=== PATIENT | male | born 1950 | race Caucasian/White ===

== ENCOUNTER → 2017-03-29 | Emergency (ER) | payer OTHER ==
[~2017-03-29] VITALS: Ht 172.7 cm; Wt 89.5 kg
[~2017-03-29] MED LIST: ADVAIR 500-501 EACH IH; ADVAIR 500/501 DISK IH; ALBUTEROL IH; Ambien PO; LIDODERM 5% P1 PATCH TD; LIPITOR10 MG PO; Singulair PO; ZOFRAN ODT4 MG PO
[2017-03-29 14:12] VITALS: BP 111/85
== END | disposition home or self-care (01) ==
LOC: EME 11:43
DX: R11.0 Nausea (principal); J45.909 Unspecified asthma, uncomplicated; V49.40XA Driver injured in collision with unspecified motor vehicles in traffic accident, initial encounter
CPT/HCPCS: 99281; 99283

== ENCOUNTER 2017-04-05 08:39 | Emergency (ER) | payer OTHER ==
[~2017-04-05] VITALS: Ht 172.7 cm; Wt 89.0 kg
[~2017-04-05 08:39] MED LIST changes: -LIDODERM 5% P1 PATCH TD
[2017-04-05] MEDS ORDERED: LIDODERM 5% P1 PATCH TD (10:56)
[2017-04-05 11:09] VITALS: BP 134/60
== END 2017-04-05 11:10 | disposition home or self-care (01) ==
LOC: EME 08:39
DX: S20.211A Contusion of right front wall of thorax, initial encounter (principal); V49.40XA Driver injured in collision with unspecified motor vehicles in traffic accident, initial encounter; Y92.410 Unspecified street and highway as the place of occurrence of the external cause; I45.10 Unspecified right bundle-branch block; J45.909 Unspecified asthma, uncomplicated
CPT/HCPCS: 71020; 99281; 99284; J1885

== ENCOUNTER 2017-11-25 08:03 | Day surgery (SDC) | payer OTHER ==
[~2017-11-25] VITALS: Ht 172.7 cm; Wt 98.9 kg
[~2017-11-25 08:03] MED LIST changes: +FISH OIL 1,0001 EAC4 PO; +LIDODERM 5% P1 PATCH TD; +SINGULAIR10 MG PO; +TOPROL XL25 MG PO
[2017-11-25 09:19] VITALS: BP 138/78
[2017-11-25 14:43] VITALS: BP 142/86
[2017-11-25 15:31] VITALS: BP 143/83
[2017-11-25 19:24] VITALS: BP 136/73
[2017-11-25 23:15] VITALS: BP 137/79
[2017-11-26 03:42] VITALS: BP 132/72
[2017-11-26 05:20] LABS: HEMATOCRIT 39.4 % (38.0-50.0); HEMOGLOBIN 13.4 G/DL (12.5-16.6); MCV 83.1 FL (86-99)
[2017-11-26 07:50] VITALS: BP 137/71
[2017-11-26] MEDS ORDERED: ASPIR-LOW81 MG PO (09:09)
[2017-11-26] MEDS ORDERED: OXYCODONE HCL5 MG PO (09:10)
== END 2017-11-26 11:37 | disposition home or self-care (01) ==
LOC: SDC 08:03 → 2SOUTH 12:39 → 3EAST 12:39 → ENRESERV 12:40 → 3EAST 14:13 → SDC 16:53 → 3EAST 11-26 11:37
PROVIDERS: Orthopaedic Surgery
DX: M19.012 Primary osteoarthritis, left shoulder (principal); M18.12 Unilateral primary osteoarthritis of first carpometacarpal joint, left hand; I10 Essential (primary) hypertension; E78.5 Hyperlipidemia, unspecified; J45.909 Unspecified asthma, uncomplicated; Z87.891 Personal history of nicotine dependence
CPT/HCPCS: 85014; 85018; 94640; 94640 76; 94799; C1776; G0378; J0690; J1170; J1200; J2250; J2405; J2795; J3010; J3301; J7030; J7050; S0020

== ENCOUNTER 2018-04-05 17:19 | Emergency (ER) | payer OTHER ==
[~2018-04-05] VITALS: Ht 172.7 cm; Wt 85.5 kg
[~2018-04-05 17:19] MED LIST changes: +ASPIR-LOW81 MG PO; +OXYCODONE HCL5 MG PO
[2018-04-05 18:15] LABS: HEMOGLOBIN 14.2 G/DL (12.5-16.6); MCHC 34.6 G/DL (30.0-36.0); MCV 80.9 FL (86-99); PLATELET COUNT 253 K/uL (156-360); RBC DIS.WIDTH-CV 13.2 % (11.8-14.6); RBC DIS.WIDTH-SD 38.4 % (39-53); RED BLOOD COUNT 5.07 M/uL (4.00-5.50); WHITE BLOOD COUNT 13.2 K/uL (4.1-10.2)
[2018-04-05 18:25] LABS: D-DIMER ELISA < 150.00 ng/mLDDU (<230)
[2018-04-05 18:25] LABS: CHLORIDE 104 mEq/L (99-109); POTASSIUM 4.1 mEq/L (3.7-5.4); SODIUM 140 mEq/L (136-147)
[2018-04-05 18:27] LABS: GLUCOSE 97 mg/dL (70-99)
[2018-04-05 18:31] LABS: CREATININE 0.9 mg/dL (0.6-1.3); GFR ESTIMATE (CALCULATED) > 59 mL/min/ (58.99-99999)
[2018-04-05 18:32] LABS: UREA NITROGEN (BUN) 19 mg/dL (9-23)
[2018-04-05 18:38] LABS: TROP-I INTERPRETATION NEGATIVE; TROPONIN-I < 0.01 ng/mL (0.0-0.30)
[2018-04-05 19:50] VITALS: BP 123/64
== END 2018-04-05 19:53 | disposition home or self-care (01) ==
LOC: EME 17:19
PROVIDERS: Emergency Medicine
DX: R07.9 Chest pain, unspecified (principal); Z87.891 Personal history of nicotine dependence
CPT/HCPCS: 71046; 80048; 84484; 85027; 85379; 93005; 99281; 99284